=== PATIENT | male | born 1970 | race Caucasian/White ===

== ENCOUNTER 2020-11-15 06:48 | Outpatient (NON) | payer OTHER, SELFPAY ==
[2020-11-15 23:38] LABS: SARS-CoV-2 RNA PCR Negative
== END 2020-11-15 06:49 ==
LOC: ANHCOVIDDT 06:49
PROVIDERS: PCP Family Medicine; Visit Provider Nurse Practitioner Family
DX: R06.02 Shortness of breath (principal); Z20.822 Contact with and (suspected) exposure to COVID-19
CPT/HCPCS: C9803; U0003

== ENCOUNTER 2022-11-18 09:00 | Outpatient (NON) | payer OTHER, SELFPAY | END 2022-11-18 09:01 | disposition home or self-care (01) | LOC: ANHLAB 11-19 13:00 | PROVIDERS: PCP Family Medicine; Visit Provider Nurse Practitioner | DX: D23.61 Other benign neoplasm of skin of right upper limb, including shoulder (principal); L98.6 Other infiltrative disorders of the skin and subcutaneous tissue; L85.9 Epidermal thickening, unspecified; Q82.8 Other specified congenital malformations of skin | CPT/HCPCS: 88305 ==

== ENCOUNTER 2024-03-31 07:50 | Outpatient (CLI) | payer OTHER, SELFPAY ==
--- NOTE | ~2024-03-31 | US_ITS ---
EXAMINATION: US thyroid DATE: 03/31/2024 08:37 INDICATION: Other specified abnormal findings of blood chemistry. Abnormal thyroid function tests. TECHNIQUE: Multiple ultrasound images of the thyroid were obtained. COMPARISON: None. FINDINGS: The right thyroid lobe measures 5.3 x 1.9 x 1.5 cm. The left thyroid lobe measures 4.2 x 1.5 x 1.3 c m. The thyroid demonstrates coarsened echotexture. No discrete nodules identified. Normal vascular f low is present. IMPRESSION: 1. Coarsened echotexture of the thyroid, which may be seen with chronic lymphocytic (Stefani's) thy roiditis. Reviewed, dictated and finalized at location A. IMPRESSION: 1. Coarsened echotexture of the thyroid, which may be seen with chronic lymphoc ytic (Stefani's) thyroiditis.
== END 2024-03-31 07:51 ==
LOC: MICIMG 07:51
PROVIDERS: PCP Nurse Practitioner Family; Visit Provider Nurse Practitioner Family
DX: R79.89 Other specified abnormal findings of blood chemistry (principal)
CPT/HCPCS: 76536